=== PATIENT | female | born 1975 | race Caucasian/White ===

== ENCOUNTER → 2024-01-03 | Outpatient (CLI) | payer BC ==
[~2024-01-03] VITALS: Ht 182.9 cm; Wt 114.6 kg
[~2024-01-03] MED LIST: Gadoterate 20 ML VIAL IV ONE; HCTZ12.5TAB PO; LR 1,000 ML IV SCH; Lidocaine PF 2% (20 MG/ML) 5 ML VIAL ONE; PREMARIN 1.251.25 MG PO; PRILOTC; TOPAMAX 25MG25 M1 PO; ePHEDrine 50 MG/ML VIAL ONE
[2024-01-03 11:05] VITALS: BP 131/90; PULSE 86; TEMP 97.9
[2024-01-03 12:49] VITALS: BP 96/65; PULSE 65
[2024-01-03 13:00] VITALS: BP 95/71; PULSE 74
[2024-01-03 13:15] VITALS: BP 95/64; PULSE 68
[2024-01-03 13:30] VITALS: BP 108/77; PULSE 70
== END ==
LOC: COL.RAD 10:28
DX: H53.9 Unspecified visual disturbance (principal)
CPT/HCPCS: A9575; J2704; J7120